=== PATIENT | female | born 1955 | race Native Hawaiian/Other Pacific Islander ===

== ENCOUNTER 2016-12-18 11:38 | Emergency (ER) | payer OTHER ==
[2016-12-18 11:50] VITALS: RESP 16
[2016-12-18] MEDS ORDERED: Oxycodone/Acetaminophen 5/325 mg Tab PO STA (12:38)
[2016-12-18 12:55] LABS: BASO # 0.1 K/uL (0.0-0.2); BASO % 0.3 % (0.0-2.0); EOS % 0.1 % (0.0-4.0); HEMATOCRIT 37.5 % (34.0-47.0); LYMPH % 6.3 % (20.0-40.0); MEAN CORPUSCULAR HEMOGLOBIN 29.4 pg (27.0-31.0); MEAN CORPUSCULAR HGB CONC 33.4 g/dL (33.0-37.0); MEAN PLATELET VOLUME 8.2 fL (7.2-11.7); MONO # 0.5 K/uL (0.0-0.8); MONO % 3.5 % (0.0-10.0); PLATELET COUNT 352 K/uL (130-400); RED CELL DISTRIBUTION WIDTH 13.7 % (11.5-14.5); WHITE BLOOD COUNT 15.4 K/uL (4.8-10.8)
[2016-12-18 13:06] LABS: ALB/GLOB RATIO 1.1 (1.0-2.1); BILIRUBIN,TOTAL 0.7 mg/dL (0.2-1.3)
[2016-12-18 13:07] LABS: CALCIUM 8.9 mg/dl (8.6-10.4)
[2016-12-18 13:10] LABS: RBC URINE 31 /hpf (0-3); URINE BACTERIA RARE (<OCC); URINE BILIRUBIN NEGATIVE (NEGATIVE); URINE BLOOD 3+ (NEGATIVE); URINE COLOR Yellow (YELLOW); URINE GLUCOSE (UA) NORMAL (Normal); URINE KETONE NEGATIVE (NEGATIVE); URINE LEUKOCYTE ESTERASE TRACE Leu/uL (Negative); URINE PROTEIN NEGATIVE (NEGATIVE); URINE URIC ACID CRYSTALS OCC /hpf (<OCC); URINE UROBILINOGEN NORMAL mg/dL (0.2-1.0); WBC URINE 10 /hpf (0-5)
--- NOTE | 2016-12-18 13:11 | C.PDOC ---
History Of Present Illness 61 y/o female presents to ED with c/o left sided back pain that started 4 days ago. 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 She notes she saw PMD the following day, and was treated with prednisone and ibuprofen. Notes pain persisted, prompting visit. She describes pain as intermittent and worse with movement. Radiates toward the abdomen. Denies fever, chills, trauma, nausea, vomiting, new weakness , new numbness, or other associated symptoms. Time Seen by Provider: 12/18/16 12:01 Chief Complaint (Nursing): Back Pain History Per: Patient History/Exam Limitations: no limitations Onset/Duration Of Symptoms: Days, Intermittent Episodes Current Symptoms Are (Timing): Still Present Quality Of Discomfort: "Pain" Associated Symptoms: None Exacerbating Factor(s): Movement Recent travel outside of the [place]: No Past Medical History Reviewed: Historical Data, Nursing Documentation, Vital Signs Vital Signs: Last Vital Signs Temp 98.7 F 12/18/16 14:51 Pulse 76 12/18/16 14:51 Resp 16 12/18/16 14:51 BP 157/92 H 12/18/16 14:51 Pulse Ox 97 12/18/16 14:51 - Medical History PMH: HTN Surgical History: Cholecystectomy Family History: States: Unknown Family Hx - Social History Hx Tobacco Use: No Hx Alcohol Use: No Hx Substance Use: No - Immunization History Hx Influenza Vaccination: Yes Hx Pneumococcal Vaccination: No Review Of Systems Except As Marked, All Systems Reviewed And Found Negative. Constitutional: Negative for: Fever, Chills Cardiovascular: Negative for: Chest Pain Respiratory: Negative for: Cough, Shortness of Breath Gastrointestinal: Negative for: Nausea, Vomiting Musculoskeletal: Positive for: Back Pain. Negative for: Neck Pain Skin: Negative for: Rash Neurological: Negative for: Weakness, Numbness, Dizziness Physical Exam - Physical Exam Appears: Non-toxic, No Acute Distress Skin: Normal Color, Warm, Dry Head: Atraumatic, Normacephalic Eye(s): bilateral: Normal Inspection, EOMI Nose: Normal Oral Mucosa: Moist Neck: Normal ROM, No Midline Cervical Tenderness, No Paracervical Tenderness, No Step Off Deformity, Supple Chest: Symmetrical, No Deformity Cardiovascular: Rhythm Regular Respiratory: Normal Breath Sounds, No Rales, No Rhonchi, No Wheezing Gastrointestinal/Abdominal: Soft, Tenderness (LUQ), No Distention, No Guarding, No Rebound Back: CVA Tenderness, No Vertebral Tenderness, Paraspinal Tenderness (left, paralumbar) Extremity: Normal ROM, No Tenderness, Capillary Refill (< 2 sec.), No Deformity , No Swelling Pulses: Left Dorsalis Pedis: Normal, Right Dorsalis Pedis: Normal Neurological/Psych: Oriented x3, Normal Speech, Normal Cognition, Normal Motor, Normal Sensation Gait: Steady ED Course And Treatment - Laboratory Results Result Diagrams: 12/18/16 12:51 12/18/16 12:51 O2 Sat by Pulse Oximetry: 98 (RA) Pulse Ox Interpretation: Normal - CT Scan/US CT Abdomen/Pelvis Other Rad Studies (CT/US): Read By Radiologist, Radiology Report Reviewed CT/US Interpretation: Accession No. : [id number]. Patient Name / ID : ARTURO FERNANDEZ / [id number]. Exam Date : 12/18/2016 13:13:36 ( Approved ). Study Comment : Sex / Age : F / 61Y. Creator : Jose Alberto Fan MD. Dictator : Jose Alberto Fan MD. Configurator : Banquet Attendant : Jose Alberto Fan MD. Approver2 : Report Date : 12/18/2016 13:54:33. My Comment : . PROCEDURE: CT Abdomen and Pelvis without intravenous contrast. HISTORY: LEFT FLANK PAIN. COMPARISON : None. TECHNIQUE: Multiple contiguous axial images were performed through the abdomen and pelvis without the use of intravenous contrast. Subsequently, sagittal and coronal reformatted images were obtained. Radiation dose: Total exam DLP = 322 mGy-cm. This CT exam was performed using one or more of the following dose reduction techniques: Automated exposure control, adjustment of the mA and/or kV according to patient size, and/or use of iterative reconstruction technique. FINDINGS: LOWER THORAX: 7 millimeter focal area of nodular consolidation within the medial aspect of the right middle lobe anteriorly. Coronary calcifications. Liver. Prominent liver with fatty infiltration. GALLBLADDER AND BILE DUCTS: Prior cholecystectomy. PANCREAS: Mild heterogeneity at the head of the pancreas which is otherwise preserved. SPLEEN: Unremarkable. ADRENALS: Unremarkable. No mass. KIDNEYS AND URETERS: Moderate left hydroureteronephrosis with 2 3 millimeter calculi seen at the posterior left urinary bladder near the ureterovesicular junction. VASCULATURE : Unremarkable. No aortic aneurysm. BOWEL: Under distended left hemicolon. Fecal retention in the right hemicolon. Few scattered diverticuli. APPENDIX: Not well visualized. Visualized portions appear grossly preserved. PERITONEUM : Unremarkable. No free fluid. No free air. LYMPH NODES: Unremarkable. No enlarged lymph nodes. BLADDER: Unremarkable. REPRODUCTIVE: Heterogeneous uterus. BONES: Degenerative changes in the spine with paravertebral osteophytes. Multilevel posterior disc osteophyte complexes noted. OTHER FINDINGS: None. IMPRESSION: Moderate left hydroureteronephrosis with two 3 millimeter calculi seen at the posterior left urinary bladder near the ureterovesicular junction. Additional findings as above. Progress Note: Treated with Percocet. Labs and CT scan ordered/reviewed. Discussed case and findings with Dr. Mccollum at 14:35, who instructs for patient to follow up at her office tomorrow. On reassessment, patient is resting comfortably, and is in no acute distress. Afebrile. Tolerating PO. Pain improved. Patient was instructed to follow up with PMD in 1-2 days for further evaluation. Instructed to reutrn to ER if symptoms persist or worsen. Case discussed and CT evalauted by Dr Casey ,agreed upon plan an ddischarge. Disposition - Disposition Referrals: Shukri Arriaga MD [Staff Provider] - Disposition: HOME/ ROUTINE Disposition Time: 14:35 Condition: STABLE Additional Instructions: Follow up with Dr Mccollum tomorrow at the clinic between 9-6 pm. Return to ER if symtpoms persist or worsen. 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 - Scribe Statement The provider has reviewed the documentation as recorded by the Tonyaibally Flores All medical record entries made by the Luis were at my direction and personally dictated by me. I have reviewed the chart and agree that the record accurately reflects my personal performance of the history, physical exam, medical decision making, and the department course for this patient. I have also personally directed, reviewed, and agree with the discharge instructions and disposition.
[2016-12-18 13:31] LABS: NEUTROPHIL 88 % (50-75); TOTAL CELLS COUNTED 100
[2016-12-18] MEDS ORDERED: Oxycodone/Acetaminophen 5/325 mg Tab ONE ×2 (13:31→13:32)
--- NOTE | 2016-12-18 13:56 | CT ---
PROCEDURE: CT Abdomen and Pelvis without intravenous contrast HISTORY: LEFT FLANK PAIN. COMPARISON: None. TECHNIQUE: Multiple contiguous axial images were performed through the abdomen and pelvis without the use of intravenous contrast. Subsequently, sagittal and coronal reformatted images were obtained. Radiation dose: Total exam DLP = 322 mGy-cm. This CT exam was performed using one or more of the following dose reduction techniques: Automated exposure control, adjustment of the mA and/or kV according to patient size, and/or use of iterative reconstruction technique. FINDINGS: LOWER THORAX: 7 millimeter focal area of nodular consolidation within the medial aspect of the right middle lobe anteriorly. Coronary calcifications. Liver Prominent liver with fatty infiltration. GALLBLADDER AND BILE DUCTS: Prior cholecystectomy. PANCREAS: Mild heterogeneity at the head of the pancreas which is otherwise preserved. SPLEEN: Unremarkable. ADRENALS: Unremarkable. No mass. KIDNEYS AND URETERS: Moderate left hydroureteronephrosis with 2 3 millimeter calculi seen at the posterior left urinary bladder near the ureterovesicular junction. VASCULATURE: Unremarkable. No aortic aneurysm. BOWEL: Under distended left hemicolon. Fecal retention in the right hemicolon. Few scattered diverticuli. APPENDIX: Not well visualized. Visualized portions appear grossly preserved. PERITONEUM: Unremarkable. No free fluid. No free air. LYMPH NODES: Unremarkable. No enlarged lymph nodes. BLADDER: Unremarkable. REPRODUCTIVE: Heterogeneous uterus. BONES: Degenerative changes in the spine with paravertebral osteophytes. Multilevel posterior disc osteophyte complexes noted. OTHER FINDINGS: None. IMPRESSION: Moderate left hydroureteronephrosis with two 3 millimeter calculi seen at the posterior left urinary bladder near the ureterovesicular junction. Additional findings as above.
[2016-12-18 14:52] VITALS: BP 157/92; PULSE 76; TEMP 98.7
[2016-12-18 17:26] VITALS: O2SAT 98
== END 2016-12-18 14:55 | disposition home or self-care (01) ==
LOC: C.ER 11:38
DX: N13.2 Hydronephrosis with renal and ureteral calculous obstruction (principal)

== ENCOUNTER 2018-09-29 06:46 | Emergency (ER) | payer OTHER ==
[2018-09-29] MEDS ORDERED: Sodium Chloride 0.9% 1,000 ML IV ONE (07:07)
--- NOTE | 2018-09-29 07:14 | C.PDOC ---
History Of Present Illness 63 year old female presents to the emergency department with complaints of left flank pain that radiates to her suprapubic area since 3:30AM. Patient states that her pain feels like a kidney stone, which she has a history of in the past. Patient reports nausea but denies vomiting and fever. Time Seen by Provider: 09/29/18 06:59 Chief Complaint (Nursing): Female Genitourinary History Per: Patient History/Exam Limitations: no limitations Onset/Duration Of Symptoms: Hrs Current Symptoms Are (Timing): Still Present Quality Of Discomfort: Sharp, "Pain" Associated Symptoms: Other (nausea) Past Medical History Reviewed: Historical Data, Nursing Documentation, Vital Signs Vital Signs: Last Vital Signs Temp 97.7 F 09/29/18 06:49 Pulse 76 09/29/18 06:49 Resp 18 09/29/18 06:49 BP 181/96 H 09/29/18 06:49 Pulse Ox 100 09/29/18 06:49 - Medical History PMH: HTN, Kidney Stones, Chronic Kidney Disease Surgical History: Cholecystectomy Family History: States: No Known Family Hx - Social History Hx Tobacco Use: No Hx Alcohol Use: No Hx Substance Use: No - Immunization History Hx Influenza Vaccination: Yes Hx Pneumococcal Vaccination: No Review Of Systems Constitutional: Negative for: Fever Cardiovascular: Negative for: Chest Pain Respiratory: Negative for: Cough, Shortness of Breath Gastrointestinal: Positive for: Nausea. Negative for: Vomiting Musculoskeletal: Positive for: Back Pain (left flank) Neurological: Negative for: Weakness, Numbness Physical Exam - Physical Exam Appears: Non-toxic, No Acute Distress Skin: Warm, Dry, No Rash Head: Atraumatic, Normacephalic Eye(s): bilateral: Normal Inspection, PERRL, EOMI Nose: Normal Oral Mucosa: Moist Neck: Normal ROM, Supple Chest: Symmetrical, No Tenderness Cardiovascular: Rhythm Regular, No Murmur Respiratory: No Rales, No Rhonchi, No Wheezing Gastrointestinal/Abdominal: Bowel Sounds, Soft, No Tenderness, No Guarding, No Rebound Back: CVA Tenderness (left-sided) Neurological/Psych: Oriented x3, Normal Speech, Normal Cognition ED Course And Treatment - Laboratory Results Result Diagrams: 09/29/18 08:00 09/29/18 08:00 O2 Sat by Pulse Oximetry: 100 (RA) Pulse Ox Interpretation: Normal - CT Scan/US Abdomen and Pelvis Other Rad Studies (CT/US): Read By Radiologist, Radiology Report Reviewed CT/US Interpretation: IMPRESSION: Mild left hydronephrosis and hydroureter up to 3.5 millimeter calculus at the left UV junction. Medical Decision Making Medical Decision Making: Plan: CT Abdomen and Pelvis CMP CBC NaCl IV Fluids Toradol 15mg IVP Urine Culture Urinalysis 1026 pt had multiople attempts at iv insertion with no success. finally able to get one small iv and labs simon, blood return slow; dina reason for hemolysis and elevated k. pt feeling better after toradol with mild residual pain; Tylenol ordered. ct results discussed with patient. d/c with strainer. flomax and ibupforen, f/u pmd and urology. Disposition Counseled Patient/Family Regarding: Studies Performed, Diagnosis, Need For Followup, Rx Given - Disposition Referrals: Radha Aleman MD [Medical Doctor] - Santy Rodriguez MD [Staff Provider] - Disposition: HOME/ ROUTINE Disposition Time: 10:32 Condition: IMPROVED Additional Instructions: Drink increased fluids. Strain all urine and collect stone when it passes; bring to urologist. Take flomax til complete. Take ibuprofen 600 mg by mouth every 6 hours for pain. Can also take Tylenol. FOllow up Dr Lea and Dr Rodriguez (urologist). Return to ER for any worse symtpms. 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 - Scribe Statement The provider has reviewed the documentation as recorded by the Scribe (Олег Cowan) All medical record entries made by the Scribe were at my direction and personally dictated by me. I have reviewed the chart and agree that the record accurately reflects my personal performance of the history, physical exam, medical decision making, and the department course for this patient. I have also personally directed, reviewed, and agree with the discharge instructions and disposition.
[2018-09-29] MEDS ORDERED: Sodium Chloride 0.9% 1,000 ML ONE (07:25)
[2018-09-29 08:08] LABS: BASO # 0.1 K/uL (0.0-0.2); BASO % 0.7 % (0.0-2.0); EOS # 0.1 K/uL (0.0-0.7); EOS % 0.5 % (0.0-4.0); HEMOGLOBIN 13.7 g/dL (11.0-16.0); LYMPH # 1.2 K/uL (1.0-4.3); LYMPH % 9.1 % (20.0-40.0); MEAN CELL VOLUME 89.1 fL (81.0-99.0); MEAN CORPUSCULAR HEMOGLOBIN 30.6 pg (27.0-31.0); MEAN CORPUSCULAR HGB CONC 34.3 g/dL (33.0-37.0); MEAN PLATELET VOLUME 7.9 fL (7.2-11.7); MONO # 0.5 K/uL (0.0-0.8); MONO % 3.5 % (0.0-10.0); NEUT # 11.3 K/uL (1.8-7.0); NEUT % 86.2 % (50.0-75.0); NRBC % 0.2 % (0.0-2.0); PLATELET COUNT 301 K/uL (130-400); RBC 4.49 Mil/uL (3.80-5.20); WHITE BLOOD COUNT 13.1 K/uL (4.8-10.8)
[2018-09-29 08:29] LABS: ALBUMIN 4.5 g/dL (3.5-5.0); ALT/SGPT < 6 U/L (9-52); AST/SGOT 67 U/L (14-36)
[2018-09-29 08:56] LABS: BLOOD UREA NITROGEN 17 mg/dL (7-17); GFR NON-AFRICAN AMERICAN > 60
--- NOTE | 2018-09-29 09:02 | CT ---
Date of service: 09/29/2018 PROCEDURE: CT Abdomen and Pelvis without intravenous contrast HISTORY: left flank pain, hx kidney stones COMPARISON: Comparison is made to the previous study dated 12/18/2016 TECHNIQUE: Axial and reformatted coronal and sagittal CT images of the abdomen and pelvis were obtained without IV or oral contrast administration.. Contrast dose: 0 Radiation dose: Total exam DLP = 211.89 mGy-cm. This CT exam was performed using one or more of the following dose reduction techniques: Automated exposure control, adjustment of the mA and/or kV according to patient size, and/or use of iterative reconstruction technique. FINDINGS: LOWER THORAX: No evidence of acute pathology. LIVER: Unremarkable. No gross lesion or ductal dilatation. GALLBLADDER AND BILE DUCTS: Status post cholecystectomy. PANCREAS: Unremarkable. No gross lesion or ductal dilatation. SPLEEN: Unremarkable. ADRENALS: Unremarkable. No mass. KIDNEYS AND URETERS: There is mild left hydronephrosis and hydroureter up to 3.5 millimeter calculus at the left UV junction. The right kidney is grossly unremarkable. VASCULATURE: Unremarkable. No aortic aneurysm. Diffuse atherosclerotic calcification noted in the abdominal aorta and iliac arteries. BOWEL: Unremarkable. No obstruction. No gross mural thickening. Scattered colonic diverticulosis are again noted. No evidence of diverticulitis APPENDIX: Unremarkable. Normal appendix. PERITONEUM: Unremarkable. No free fluid. No free air. LYMPH NODES: Unremarkable. No enlarged lymph nodes. BLADDER: Unremarkable. REPRODUCTIVE: Unremarkable. BONES: No acute fracture. OTHER FINDINGS: None. IMPRESSION: Mild left hydronephrosis and hydroureter up to 3.5 millimeter calculus at the left UV junction.
[2018-09-29 09:11] LABS: BANDS 4 % (0-2); EOSINOPHIL 1 % (0-4); LYMPHOCYTE 10 % (20-40); MONOCYTE 6 % (0-10); NEUTROPHIL 79 % (50-75); PLATELET ESTIMATE NORMAL (NORMAL); TOTAL CELLS COUNTED 100
[2018-09-29 09:26] LABS: SQUAMOUS EPITHIAL < 1 /hpf (0-5); URINE BILIRUBIN NEGATIVE (NEGATIVE); URINE BLOOD NEGATIVE (NEGATIVE); URINE CLARITY Clear (Clear); URINE COLOR Yellow (YELLOW); URINE GLUCOSE (UA) NORMAL (Normal); URINE LEUKOCYTE ESTERASE NEG Leu/uL (Negative); URINE PROTEIN NEGATIVE (NEGATIVE); URINE UROBILINOGEN NORMAL mg/dL (0.2-1.0)
[2018-09-29 10:41] VITALS: RESP 20
[2018-09-29 12:15] VITALS: BP 146/85; PULSE 85; TEMP 98.6; O2SAT 97
[2018-09-29 14:38] LABS: ALB/GLOB RATIO 1.3 (1.0-2.1)
== END 2018-09-29 12:14 | disposition home or self-care (01) ==
LOC: C.ER 06:46
DX: N13.2 Hydronephrosis with renal and ureteral calculous obstruction (principal); Z87.442 Personal history of urinary calculi
CPT/HCPCS: 74176; 80053; 81001; 85025; 87086; 96372; 99285; J1885; J7030